=== PATIENT | female | born 1940 | race Caucasian/White ===

== ENCOUNTER 2016-03-19 03:10 | Emergency (ER) | payer MEDICARE, OTHER ==
[2016-03-19] MEDS ORDERED: ASPIRIN 325 MG TABLET PO ONE (03:33)
[2016-03-19 04:06] LABS: BASOPHILS % 0.4 (0.0-1.5); LYMPHOCYTES # 2.2 # k/uL (0.6-4.0); MEAN CORPUSCULAR HEMOGLOBIN 29.7 pg (28.0-34.0); MONOCYTES # 0.3 # k/uL (0.0-0.9); MONOCYTES % 4.9 % (0.0-11.0); NEUTROPHILS # 3.5 # k/uL (1.4-7.7)
[2016-03-19 04:18] LABS: eGFR (African) > 60; eGFR (Non-African) > 60
[2016-03-19] MEDS ORDERED: POTASSIUM CHLORIDE 20 MEQ TABLET.ER PO ONE (05:04)
--- NOTE | 2016-03-19 05:23 | Diagnostic Imaging Report ---
[facility] [address] [facility].[address] 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 Heart size is upper normal. Mild left basilar atelectasis or scar observed. No pleural effusions are identified. The right lung is clear. Impression: Hyperinflation, upper normal heart size, and mild left basilar atelectasis. ~ Electronically signed on Mar 19, 2016 4:00:04 AM CUSHION BUILDER by: Mihai AL
--- NOTE | 2016-03-19 07:05 | ED Physician Documentation ---
Chest Pain - HISTORIAN Historian: patient - HPI Stated Complaint: cp Chief Complaint: Chest Pain Additional Information: gone now Onset: hours (1) Timing: sudden onset Duration: sudden-onset Last known Well Date: 03/18/16 Last Known Well Time: 02:00 Context: rest Severity: moderate Quality: dull, aching Chest Pain Radiation: no radiation Chest Pain Signs/Symptoms: denies: nausea, vomiting, diaphoresis Worsened By: nothing Relieved By: nothing Further Comments: no - ROS CONST: no problems MS/LYMPH: none GI/: none EYES/ENT: other (roaring in right ear) SKIN/ENDO: none NEURO/PSYCH: none - PAST HX [place] risk factors: hypertension DVT/PE Risk Factors: none TAD/AAA risk factors: none Neuro deficit: none GI disease: none Lung disease: none Surgeries/Procedures: cholecysectomy, hysterectomy Immunizations: referred to PCP Allergies/Adverse Reactions: Allergies Allergy/AdvReac Type Severity Reaction Status Date / Time No Known Drug Allergies Allergy Verified 03/19/16 03:50 - SOCIAL HX Smoking History: non-smoker Alcohol Use: none Drug Use: none - FAMILY HX Family HX: none - VITAL SIGNS Vital Signs: Vital Signs Temp Pulse Resp BP Pulse Ox 97.6 F 50 L 16 168/88 100 03/19/16 03:12 03/19/16 03:33 03/19/16 03:12 03/19/16 03:12 03/19/16 03:33 - REVIEWED ASSESSMENTS Nursing Assessment Reviewed: Yes Vitals Reviewed: Yes Progress - Results/Orders Results/Orders: see orders - Progress Progress: pt. stable entire time in er Critical Care Note - Critical Care Note Total Time (mins): 0 ED Results Lab/Radiology - Lab Results Lab Results: Lab Results 03/19/16 03/19/16 03/19/16 03:39 03:33 03:33 WBC 6.20 K/ul K/ul (4.00-12.00) RBC 4.78 M/ul M/ul (3.90-5.20) Hgb 14.2 g/dL g/dL (12.0-16.0) Hct 41.8 % % (34.5-46.5) MCV 87.5 fl fl (80.0-100.0) MCH 29.7 pg pg (28.0-34.0) MCHC 33.9 g/dL g/dL (30.0-36.0) RDW 13.7 % % (11.3-14.3) Plt Count 180 K/mm3 K/mm3 (130-400) Neut % (Auto) 56.4 % % (39.0-79.0) Lymph % (Auto) 35.1 % % (16.0-50.0) [place] % (Auto) 4.9 % % (0.0-11.0) Eos % (Auto) 2.0 % % (0.0-6.8) Baso % (Auto) 0.4 (0.0-1.5) Neut # 3.5 # k/uL # k/uL (1.4-7.7) Lymph # 2.2 # k/uL # k/uL (0.6-4.0) [place] # 0.3 # k/uL # k/uL (0.0-0.9) Eos # 0.1 # k/uL # k/uL (0.0-0.6) Baso # 0.0 # k/uL # k/uL (0.0-0.5) Reactive Lymphs % 1.2 % % (0.0-5.0) Reactive Lymphs # 0.1 # k/uL # k/uL (0.0-0.8) Sodium 138 mmol/L mmol/L (136-145) Potassium 3.2 mmol/L L mmol/L (3.5-5.0) Chloride 107 mmol/L mmol/L (98-110) Carbon Dioxide 32 mmol/L mmol/L (20-32) BUN 12 mg/dL mg/dL (10-26) Creatinine 0.6 mg/dL mg/dL (0.4-1.5) Est GFR ( Amer) > 60 (60 - ) Est GFR (Non-Af Amer) > 60 (60 - ) Glucose 158 mg/dL H mg/dL (70-99) Calcium 10.4 mg/dL mg/dL (8.5-10.5) Total Bilirubin 0.5 mg/dL mg/dL (0.2-1.2) AST 20 U/L U/L (0-41) ALT 21 U/L U/L (0-45) Alkaline Phosphatase 88 U/L U/L (46-116) Troponin I 0.00 ng/mL L ng/mL (0.03-0.06) NT-Pro-B Natriuret Pep 217.5 pg/mL pg/mL (15.0-450.0) Total Protein 6.5 g/dL g/dL (6.0-8.5) Albumin 4.3 g/dL g/dL (3.0-5.5) - Radiology Radiology Impressions: see results - Orders Orders: ED Orders Category Date Time Status Continuous EKG monitoring Q1H Care 03/19/16 03:33 Active Continuous Pulse Oximetry Q1H Care 03/19/16 03:33 Active CHEST 1 VIEW [RAD] Routine Exams 03/19/16 Completed CBC/PLATELET/DIFF Routine Lab 03/19/16 03:33 Completed CMP Routine Lab 03/19/16 03:33 Completed NT-proBNP Routine Lab 03/19/16 03:39 Completed TROPONIN I (cTnI) Routine Lab 03/19/16 03:39 Completed URINALYSIS Routine Lab 03/19/16 03:33 Ordered Aspirin Med 03/19/16 03:33 Discontinued 325 mg PO NOW ONE Potassium Chloride [Klor-Con M20] Med 03/19/16 05:04 Discontinued 20 meq PO NOW ONE EKG WITH COMPARISON Routine Ther 03/19/16 Ordered Chest Pain Physical Exam - EXAM General Appearance: no acute distress, alert EENT: eye inspection normal, ENT inspection normal, pharynx normal, no signs of dehydration, CARLOS, no nystagmus, TM's nml Neck: nml inspection, no carotid bruit Respiratory: no resp. distress, chest non-tender, nml breath sounds CVS: reg. rate & rhythm, no murmur, no gallop, no friction rub, pulses full, pulses equal Abdomen: soft, no organomegaly, normal bowel sounds, no abdominal bruit, no distension, non-tender Skin: warm/dry Extremities: non-tender, normal range of motion, no evidence of injury, no edema , edema Neuro: oriented X3, CN's nml as tested, motor nml, sensation nml, mood/affect nml, cognition normal Discharge Clincal Impression: Costochondritis Comments: home in stable condition, recommend use of Flonase for ear roaring secondary to sinus issues Condition: Stable Disposition: 01 HOME, SELF-CARE Decision to Admit: NO Decision Time: 05:00
[2016-03-19 07:42] VITALS: BP 139/59
[2016-03-19 10:11] LABS: OCCULT BLOOD,URINE NEGATIVE (NEGATIVE); UROBILINOGEN URINE 0.2 Eu (0.2-1.0)
== END 2016-03-19 05:30 | disposition home or self-care (01) ==
LOC: ED 03:10
DX: M94.0 Chondrocostal junction syndrome [Tietze] (principal)
CPT/HCPCS: 71010; 80053; 81002; 83880; 84484; 85025; 87088; 93005; A9270; 99283; 99284

== ENCOUNTER 2016-10-27 09:15 | Outpatient (CLI) | payer MEDICARE, OTHER ==
[2016-10-27 09:59] LABS: eGFR (African) > 60; eGFR (Non-African) > 60
== END 2016-10-27 09:16 ==
LOC: LAB 09:15
PROVIDERS: ATTEND Family Medicine
DX: E11.9 Type 2 diabetes mellitus without complications (principal); I10 Essential (primary) hypertension
CPT/HCPCS: 36415; 80053; 80061; 83036

== ENCOUNTER 2017-02-06 09:25 | Outpatient (CLI) | payer MEDICARE, OTHER | END 2017-02-06 09:26 | LOC: LAB 09:25 | PROVIDERS: ATTEND Family Medicine | DX: E11.9 Type 2 diabetes mellitus without complications (principal) | CPT/HCPCS: 36415; 83036 ==

== ENCOUNTER 2017-06-12 08:37 | Outpatient (CLI) | payer MEDICARE, OTHER ==
[2017-06-12 09:27] LABS: eGFR (Non-African) > 60
== END 2017-06-12 08:40 ==
LOC: LAB 08:37
PROVIDERS: ATTEND Family Medicine
DX: E11.9 Type 2 diabetes mellitus without complications (principal); I10 Essential (primary) hypertension
CPT/HCPCS: 36415; 80048; 83036

== ENCOUNTER 2018-07-09 08:53 | Outpatient (CLI) | payer MEDICARE, OTHER | END 2018-07-09 08:55 | LOC: LAB 08:53 | PROVIDERS: ATTEND Family Medicine | DX: E11.9 Type 2 diabetes mellitus without complications (principal) | CPT/HCPCS: 36415; 80048; 83036 ==

== ENCOUNTER 2018-11-15 08:36 | Outpatient (CLI) | payer MEDICARE, OTHER | END 2018-11-15 08:38 | LOC: LAB 08:36 | PROVIDERS: ATTEND Family Medicine | DX: E11.9 Type 2 diabetes mellitus without complications (principal) | CPT/HCPCS: 36415; 83036 ==

== ENCOUNTER 2019-02-11 08:36 | Outpatient (CLI) | payer MEDICARE, OTHER ==
[2019-02-11 09:02] LABS: A1C 7.5 % (<5.7)
[2019-02-11 09:31] LABS: HDL 71 mg/dL (>40); eGFR (Non-African) > 60
== END 2019-02-11 08:41 ==
LOC: LAB 08:36
PROVIDERS: ATTEND Family Medicine
DX: E11.9 Type 2 diabetes mellitus without complications (principal)
CPT/HCPCS: 36415; 80053; 80061; 83036